=== PATIENT | female | born 1975 | race African-American/Black ===

== ENCOUNTER 2019-02-28 21:05 | Emergency (ER) | payer OTHER, MEDICAID ==
[~2019-02-28] VITALS: Ht 162.6 cm; Wt 127.0 kg
[2019-03-01 01:04] LABS: Urine Bacteria NONE SEEN /hpf (None Seen); Urine Blood Negative /uL (Negative); Urine Specific Gravity 1.017 (1.001-1.035); Urine WBC <1 /hpf (0 - 5)
[2019-03-01] MEDS ORDERED: MORPHINE SULF INJ 2 MG/ML SYRINGE 1ML IV ONE (01:30)
[2019-03-01] MEDS ORDERED: ONDANSETRON HCL 4 MG/2 ML VIAL IV ONE (01:30)
[2019-03-01] MEDS ORDERED: cloNIDine HCL 0.1 MG TAB PO ONE (03:00)
[2019-03-01 03:39] VITALS: BP 151/93
== END 2019-03-01 03:42 | disposition home or self-care (01) ==
LOC: ER 21:05
DX: S16.1XXA Strain of muscle, fascia and tendon at neck level, initial encounter (principal); S39.012A Strain of muscle, fascia and tendon of lower back, initial encounter; I10 Essential (primary) hypertension; J45.909 Unspecified asthma, uncomplicated; X58.XXXA Exposure to other specified factors, initial encounter; Y93.89 Activity, other specified; Y92.89 Other specified places as the place of occurrence of the external cause; Y99.8 Other external cause status
CPT/HCPCS: 72125; 72128; 72131; 81001; 81025; 82962; 96374; 96375; 99284; J2270; J2405